=== PATIENT | male | born 1935 | race Caucasian/White ===

== ENCOUNTER 2019-07-29 10:17 | Emergency (ER) | payer MEDICARE, SELFPAY ==
[2019-07-29 10:18] VITALS: BP 123/56; PULSE 65; RESP 18; TEMP 36.6; O2SAT 99; BMI 28.7
--- NOTE | 2019-07-29 10:42 | CT_ITS ---
STUDY: CT BRAIN WITHOUT CONTRAST REASON FOR EXAM: Male, 83 years old. Headache RADIATION DOSAGE (If Supplied By Facility): CTDIvol = ( 44.99 ) mGy, DLP = ( 779.24 ) mGycm TECHNIQUE: Transaxial CT imaging of the brain was performed without administration of intravenous contrast material. Individualized dose optimization techniques were used for this CT. COMPARISON: 07/18/2007 FINDINGS: Again noted are basal ganglia and cerebellar calcifications. There is no acute bleed or infarct. There are stable mild chronic ischemic changes. The ventricles are normal in configuration. There is no hydrocephalus. The visualized paranasal sinuses are clear. The mastoid air cells are well aerated. There is no skull fracture. CT/Brain/Head without Contrast IMPRESSION: No acute intracranial abnormality. Stable mild chronic ischemic changes. Electronically Signed: Addison Nichols, at 11:37 EDT Tel , Service support ,
--- NOTE | 2019-07-29 10:42 | EKG12_ITS ---
Test Reason : Blood Pressure : / mmHG Vent. Rate : 058 BPM Atrial Rate : 058 BPM P-R Int : 150 ms QRS Dur : 092 ms QT Int : 416 ms P-R-T Axes : 044 -19 048 degrees QTc Int : 408 ms Sinus bradycardia Otherwise normal ECG Confirmed by YAIR HELM, MIGUE ([id number]), material expeditor CHIKI GALLEGO ([id number]) on 07/31/2019 11:03:39 AM Referred By: Confirmed By:MIGUE MAZARIEGOS MD
--- NOTE | 2019-07-29 10:43 | RAD_ITS ---
STUDY: X-RAY CHEST REASON FOR EXAM: Male, 83 years old. Illness TECHNIQUE: Frontal and lateral views of the chest COMPARISON: None. FINDINGS: The lungs are clear. There are no pleural effusions. There is no pneumothorax. The heart is normal in size. The visualized osseous structures are within normal limits. RAD/Chest PA and Lateral IMPRESSION: No acute thoracic pathology. Electronically Signed: Addison Nichols, at 11:45 EDT Tel , Service support ,
--- NOTE | 2019-07-29 10:44 | ED.DCSUM_ITS ---
History of Present Illness Chief Complaint: Weakness Informant: Patient, Family Onset: Days - 4 Context: Gradual Onset Timing: Continuous Quality: weak Location: all over Current Severity: Moderate Maximum Severity: Moderate Worsened by: exertion Relieved by: nothing Associated Symptoms: BARRAZA Narrative: Patient has been feeling weak all over lately. Really has been significant for the past 4 days. He states he has felt depressed because of health issues with family members including his recently having heart attack, this year, but cannot tell if his sadness is what is making him feel bad or if he has something physical going on. He has no other physical symptoms, with the exception on review of systems of discovering that he has dyspnea with exertion that has been there for several months, daughter states it has been worse over the past 4 days. He states exerting himself back and forth to the mailbox which is 90 feet away, makes him need to rest when he gets back, but walking around the house does not give him problems. He denies any exertional chest discomfort. No coughing. No recent long travel, hospitalization, surgery. Does not take aspirin or anticoagulants, and has never needed to be prescribed anticoagulants. - Past Medical History (1) HTN (hypertension) Status: Chronic Past Medical History - Allergies and Home Meds Allergies/Adverse Reactions: Allergies No Known Allergies Allergy (Verified 07/29/19 10:21) Primary Care Physician: Rei Schmidt III, MD [Primary Care Provider] - As soon as possible Lives: Spouse/ Significant Other Smoking Status: Current every day smoker Alcohol: None Drugs: None Review of Systems General: Reports: Malaise, - - no lightheadedness, dizziness, off-balance or a taxia. Denies: Chills, Fever, Sweats, Weight loss Eyes: Denies: Visual changes - bilaterally, Diplopia ENT: Denies: Bilateral ear pain, Rhinorrhea, Sore throat Cardiovascular: Denies: Chest pain, Palpitations Respiratory: Reports: Dyspnea on exertion. Denies: Dyspnea, Cough, Orthopnea, Paroxysmal nocturnal dyspnea Gastrointestinal: Reports: - - occasional tenesmus - not new, seems to depend on diet. Denies: Abdominal pain, Nausea, Vomiting, Diarrhea, Melena, Hematochezia Genitourinary: Denies: Dysuria, Hematuria, Frequency Musculoskeletal: Denies: Myalgias, Arthralgias, Neck pain, Back pain, Swelling, Extremity Pain Skin: Reports: Rash - occasional patches of dry itchy skin on extremities. Denies: Abscess, Wounds Neurological: Reports: - - no speech difficulty. no confusion.. Denies: Headache, Weakness - nonfocal sx, Parasthesia, Numbness Psych: Reports: Depression. Denies: Suicidal thoughts, Suicidal ideations Endocrine: Denies: Polyuria, Polydipsia Hematologic: Denies: Easy bruising, Easy bleeding Allergy: Denies: Uticaria, Swelling of the mouth, Swelling of the tongue Physical Exam Vital Signs/Narrative: Vital Signs Temp Pulse Resp BP Pulse Ox 07/29/19 10:18 97.8 F 65 18 123/56 H 99 Inital Vital Signs reviewed: Yes General: Well nourished, Well developed, No Acute Distress Head: Normocephalic, Atraumatic Eyes: Perrl, EOMI, - - nml conj bilat ENT: Moist mucous membranes, No rhinorrhea, TM's clear - except left occluded by cerumen, - - no nasal turbinate edema or purulent d/c. Negative for: Nasal congestion, Sinus tenderness Neck: Supple, Nontender, No lymphadenopathy, No JVD Cardiovascular: Regular rate, Regular rhythm, No murmurs, Normal S1, Normal S2 Respiratory: No distress, CTA bilaterally, Chest nontender Abdomen: Soft, Nontender, Nondistended, Normal bowel sounds Back: Nontender, Normal Inspection. Negative for: CVA tenderness Extremities: Nontender, No edema. Negative for: Calf Tenderness Skin: Normal color, No Trauma, Rash - 2 nontender patches of dry skin w/ few excoriations on posterior left lower leg, consistent w/ dermatitis or eczema; no other rashes/lesions. Neurological: Alert, Oriented x3, Cranial nerves II-XII grossly intact, Normal Strength, Normal Sensation Psychological: Normal affect, Normal Mood Diagnostic/Tx/Re-eval Impressions Brain CT 07/29/19 10:42 IMPRESSION: No acute intracranial abnormality. Stable mild chronic ischemic changes. Electronically Signed: Addison Nichols, at 11:37 EDT Tel , Service support , Chest X-Ray 07/29/19 10:43 IMPRESSION: No acute thoracic pathology. Electronically Signed: Addison Nichols, at 11:45 EDT Tel , Service support , 07/29/19 10:42 Brain/Head without Contrast [CT] Stat 07/29/19 10:43 Chest PA and Lateral [RAD] Stat Laboratory Results 07/29/19 07/29/19 07/29/19 10:52 10:55 10:55 WBC 7.1 RBC 4.91 Hgb 15.2 Hct 46.4 MCV 94.5 H MCH 31.0 MCHC 32.8 RDW Std Deviation 45.7 H RDW Coeff of Hortensia 13.1 Plt Count 173 MPV 10.7 Immature Gran % (Auto) 0.300 Neut % (Auto) 59.9 Lymph % (Auto) 24.9 [place] % (Auto) 7.9 Eos % (Auto) 5.9 H Baso % (Auto) 1.1 H Absolute Neuts (auto) 4.2 Absolute Lymphs (auto) 1.76 Nucleated RBC % 0 Sodium 140 Potassium 3.8 Chloride 106 Carbon Dioxide 32.0 Anion Gap 2 L BUN 20 H Creatinine 1.20 Estim Creat Clear Calc 49.85 Est GFR (MDRD) Af Amer 75 Est GFR (MDRD) Non-Af 62 BUN/Creatinine Ratio 16.7 Glucose 102 Calcium 8.9 Troponin I < 0.015 B-Natriuretic Peptide Urine Color Yellow Urine Clarity Clear Urine pH 6.0 Ur Specific [place] 1.010 Urine Protein Negative Urine Glucose (UA) Normal Urine Ketones Negative Urine Occult Blood Negative Urine Nitrite Negative Urine Bilirubin Negative Urine Urobilinogen Normal Ur Leukocyte Esterase Negative Urine RBC 0 SEEN Urine WBC 0 SEEN Ur Squamous Epith Cells 0-5 SEEN Urine Bacteria 0 SEEN Urine Mucus 0 SEEN 07/29/19 10:55 WBC RBC Hgb Hct MCV MCH MCHC RDW Std Deviation RDW Coeff of [place] Plt Count MPV Immature Gran % (Auto) Neut % (Auto) Lymph % (Auto) [place] % (Auto) Eos % (Auto) Baso % (Auto) Absolute Neuts (auto) Absolute Lymphs (auto) Nucleated RBC % Sodium Potassium Chloride Carbon Dioxide Anion Gap BUN Creatinine Estim Creat Clear Calc Est GFR (MDRD) Af Amer Est GFR (MDRD) Non-Af BUN/Creatinine Ratio Glucose Calcium Troponin I B-Natriuretic Peptide 67.8 Urine Color Urine Clarity Urine pH Ur Specific [place] Urine Protein Urine Glucose (UA) Urine Ketones Urine Occult Blood Urine Nitrite Urine Bilirubin Urine Urobilinogen Ur Leukocyte Esterase Urine RBC Urine WBC Ur Squamous Epith Cells Urine Bacteria Urine Mucus - Rhythm Strip Rhythm Strip: Sinus Rhythm Rate: 58 Ectopy: None - EKG Initial EKG Interpretation: No Acute Injury Pattern, Sinus Bradycardia, - - normal EKG - Medical Decision Making Vital signs are normal and differential is broad. 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 Work-up is largely unremarkable. He has some mild prerenal azotemia. He was given some IV fluids here. He is borderline bradycardic. It is possible that with his beta-khari, he is too bradycardic and when he exerts himself he feels dyspneic as a result. He is not feeling lightheaded or having near syncopal episodes, but since his blood pressure is 123/56, I think it would be reasonable to follow-up as an outpatient and discontinue his atenolol that he currently takes; he states that for the past several years, he has only been taking half of the pill once daily, 12.5 mg. I discussed this with patient and daughter and they are comfortable with this plan. ED Disposition - Plan for ED Patient: Disposition: Home or Assisted Living Diagnosis: Dyspnea on exertion, Generalized weakness, Depression, Bradycardia Instructions: WEAKNESS, Unk Cause Referrals: Rei Schmidt III, MD [Primary Care Provider] - As soon as possible Additional Instructions: Until you see your doctor, discontinue your blood pressure medication.
--- NOTE | 2019-07-29 10:48 | NURSING ---
NO OLD EKGS
[2019-07-29 11:05] LABS: Bacteria 0 SEEN /hpf (None Seen); Mucous, Urine 0 SEEN /hpf (<or=2+); Red Blood Cells-Urine 0 SEEN /hpf (0-5); White Blood Cells 0 SEEN /hpf (0-5)
[2019-07-29 11:13] LABS: Absolute Lymphocyte Count 1.76 X10^3/uL (0.83-4.51); Absolute Neutrophil Count 4.2 X10^3/uL (2.0-7.7); Basophil# 0.08 X10^3/uL; Basophil% 1.1 % (0-1); Eosinophil# 0.42 X10^3/uL; Eosinophils% 5.9 % (0-5); Hematocrit 46.4 % (40-54); Hemoglobin 15.2 g/dL (13.0-16.5); Lymphocyte # 1.76 X10^3/ul (4.0); Lymphocyte % 24.9 % (19-41); Mean Corp Hgb Conc 32.8 g/dL (32-36); Mean Corpuscular Volume 94.5 fL (80-94); Mean Platelet Vol. 10.7 fl (6.2-12.0); Monocyte# 0.56 X10^3/uL; Monocyte% 7.9 % (0-10); NRBC Flagged by Analyzer 0 % (0-5); Neutrophil # 4.22 X10^3/uL (2.7-7.7); Neutrophil % 59.9 % (47-70); Platelet Count 173 K/mm3 (150-450); RBC Distribution Width CV 13.1 % (11.6-14.6); RBC Distribution Width SD 45.7 fl (35.1-43.9); Red Blood Count 4.91 M/mm3 (4.6-6.2); White Blood Count 7.1 K/mm3 (4.4-11.0)
[2019-07-29 11:18] LABS: Color, Urine Yellow (Yellow); Glucose, Dipstick Normal (Normal); Ketone-Dipstick Negative (Negative); Leukocyte Esterase-Dipstick Negative /ul (Negative); Nitrite-Dipstick Negative (Negative); Occult Blood-Urine Negative /ul (Negative); Protein-Dipstick Negative (Negative); Urine Bilirubin Dipstick Negative (Negative); Urine Clarity Clear (Clear); Urine Urobilinogen Normal (Normal)
[2019-07-29 11:20] LABS: Squamous Epithelial Cells - UA 0-5 SEEN /hpf (0-5)
[2019-07-29 11:25] LABS: Anion Gap 2 (5-15); BUN 20 mg/dL (7-18); BUN/Creat Ratio 16.7 RATIO (10-20); Calcium,Total 8.9 mg/dL (8.5-10.1); Chloride 106 mmol/L (98-107); EST Glomerular Filtration Rate 62 mL/min (>60); Est Glom Filt Rate - Afr Amer 75 mL/min (>60); Estimated Creatinine Clearance 49.85 ml/min; Glucose 102 mg/dL (74-106); Potassium 3.8 mmol/L (3.5-5.1); Sodium Level 140 mmol/L (136-145)
[2019-07-29] MEDS: 0.9% Normal Saline 1,000 ML 150 ML IV (11:32)
[2019-07-29 11:43] LABS: BNP,B-Type NATRIURETIC PEPTIDE 67.8 pg/mL (0-100)
[2019-07-29 12:50] VITALS: BP 146/65; PULSE 57; RESP 17; O2SAT 96
== END 2019-07-29 12:54 | disposition home or self-care (01) ==
PROVIDERS: Emergency Provider Emergency Medicine; Family Provider Family Medicine; PCP Family Medicine
DX: R53.1 Weakness (principal); R06.09 Other forms of dyspnea; F32.9 Major depressive disorder, single episode, unspecified; R00.1 Bradycardia, unspecified; I10 Essential (primary) hypertension; F17.200 Nicotine dependence, unspecified, uncomplicated; Z79.899 Other long term (current) drug therapy
CPT/HCPCS: 70450; 71046; 80048; 81001; 83880; 84484; 85025; 93005; 96360; 99284; J7030; A4216

== ENCOUNTER → 2019-08-31 11:12 | Outpatient (CLI) | payer MEDICARE, SELFPAY ==
[2019-08-31 11:23] LABS: Erythrocyte Sedimentation Rate 3 mm/hr (0-20)
[2019-08-31 11:28] LABS: Lipase 111 U/L (73-393)
== END ==
PROVIDERS: Family Provider Family Medicine; PCP Family Medicine; Referring Provider Nurse Practitioner Family; Visit Provider Nurse Practitioner Family
DX: R10.30 Lower abdominal pain, unspecified (principal)
CPT/HCPCS: 83690; 85652

== ENCOUNTER 2020-11-14 11:54 | Outpatient (RCR) | payer MEDICARE, SELFPAY | END 2020-11-14 23:59 | LOC: IMMUN 11:54 | PROVIDERS: PCP Nurse Practitioner Family; Referring Provider Family Medicine; Visit Provider Family Medicine | DX: Z23 Encounter for immunization (principal) | CPT/HCPCS: 0011A; 0012A ==